=== PATIENT | male | born 1995 | race Two or more races ===

== ENCOUNTER 2017-09-17 23:48 | Emergency (ER) | payer SELFPAY ==
[~2017-09-17] VITALS: Ht 170.2 cm; Wt 76.7 kg
[2017-09-17 23:48] VITALS: BP 121/65
[~2017-09-17 23:48] MED LIST: NKM
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
[2017-09-18 06:19] VITALS: BP 124/82
== END 2017-09-18 06:21 | disposition home or self-care (01) ==
LOC: EDBD 23:48 → EMR 23:59
DX: F10.129 Alcohol abuse with intoxication, unspecified (principal)
CPT/HCPCS: 82962; 99283

== ENCOUNTER 2018-07-07 05:36 | Emergency (ER) | payer SELFPAY ==
[~2018-07-07] VITALS: Ht 182.9 cm; Wt 81.6 kg
--- NOTE | 2018-07-07 05:41 | Emergency Room Report ---
History of Present Illness General Chief Complaint: Altered Level of Consciousness Source: Patient, Medical Record, EMS Present Illness HPI Is a 23-year-old male who presents with alcohol intoxication. He was been drinking heavily tonight. Denies any fever chills. Denies any nausea vomiting. No suicidal thoughts homicidal thought. EMS picked him up outside of his house. He's been here several times for alcohol intoxication. Allergies: Coded Allergies: No Known Allergies (Unverified , 05/06/15) Patient History Past Medical History: none, see triage record, old chart reviewed Past Surgical History: none Pertinent Family History: none Social History: Reports: alcohol use Immunizations: other Reviewed Nursing Documentation: PMH: Agreed; PSxH: Agreed Nursing Documentation-PMH History Of Psychiatric Problem: Yes - BIPOLAR Review of Systems Eye: Denies: eye pain, blurred vision ENT: Denies: ear pain, nose congestion, throat swelling Respiratory: Denies: cough, shortness of breath Cardiovascular: Denies: chest pain, palpitations Gastrointestinal: Denies: abdominal pain, diarrhea, nausea, vomiting Musculoskeletal: Denies: back pain, joint pain Skin: Denies: rash Neurological: Denies: headache, numbness Endocrine: Denies: increased thirst, increased urine Hematologic/Lymphatic: Denies: easy bruising All Other Systems: negative except mentioned in HPI Physical Exam Vital Signs Date Time Temp Pulse Resp B/P (MAP) Pulse Ox O2 Delivery O2 Flow Rate FiO2 07/07/18 05:32 96.5 76 16 134/76 99 Room Air 96.4 vitals normal Sp02 EP Interpretation: reviewed, normal General Appearance: well appearing, no apparent distress, alert Head: normocephalic, atraumatic Eyes: bilateral eye PERRL, bilateral eye EOMI ENT: hearing grossly normal, normal pharynx Neck: full range of motion, supple, no meningismus Respiratory: chest non-tender, lungs clear, normal breath sounds Cardiovascular #1: regular rate, rhythm, no murmur Gastrointestinal: normal bowel sounds, non tender, no mass, no organomegaly, no bruit, non-distended Musculoskeletal: back normal, gait/station normal, normal range of motion Psychiatric: mood/affect normal Skin: warm/dry Medical Decision Making Diagnostic Impression: Primary Impression: Alcohol intoxication Qualified Codes: F10.920 - Alcohol use, unspecified with intoxication, uncomplicated ER Course Patient presents with alcohol intoxication. No trauma to warrant CT scan or x- rays. We'll watch him until clinical sobriety. Last Vital Signs Date Time Temp Pulse Resp B/P (MAP) Pulse Ox O2 Delivery O2 Flow Rate FiO2 07/07/18 05:32 96.5 76 16 134/76 99 Room Air 96.4 Status: improved Disposition: HOME, SELF-CARE Condition: Stable Additional Instructions: abstain from alcohol. Follow-up with rehab. Follow up with your doctor in 7 days. Return if worse. SAMI HOLLEY M.D. Jul 07, 2018 05:41
[2018-07-07 05:45] VITALS: BP 134/76
[2018-07-07 10:21] VITALS: BP 128/85
== END 2018-07-07 10:21 | disposition home or self-care (01) ==
LOC: EDBD 05:36 → EMR 05:59
DX: F10.929 Alcohol use, unspecified with intoxication, unspecified (principal); F31.9 Bipolar disorder, unspecified
CPT/HCPCS: 96360; 99283; 99284

== ENCOUNTER 2019-06-10 23:51 | Emergency (ER) | payer SELFPAY ==
[~2019-06-10] VITALS: Ht 172.7 cm; Wt 75.7 kg
[2019-06-11] VITALS: BP 118/72
--- NOTE | 2019-06-11 | NUR ---
ED Nurse Note: [facility] 67 [facility]. at time of arrival patient is not responding and is sleeping, a receipt for four pam was found on the patients bag. patient reeks of alcohol. will wait for further orders
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
[2019-06-11 02:24] VITALS: BP 120/75
--- NOTE | 2019-06-11 03:00 | NUR ---
ED Nurse Note: Received report from REMY Crespo. Pt is asleep; intermittently changing position.
--- NOTE | 2019-06-11 04:00 | NUR ---
ED Nurse Note: Asleep.
--- NOTE | 2019-06-11 05:00 | NUR ---
ED Nurse Note: Pt. asleep; report given to
--- NOTE | 2019-06-11 05:00 | NUR ---
ED Nurse Note: Recieved report from radha witt to resume care, pt is here pending sober for discharge, pt was awakened, is oriented to name only, pt was re-oriented to place, time ane event, pt deneis pain, no sob or labored breathing, pt falls asleep while talking, pt does awaken but appears to need more time to sober for safe discharge, will allow another hour and re-assess, v/s taken, tp has patent saline lock in right ac., will continue to closely monitor.
[2019-06-11 05:03] VITALS: BP 112/68
[2019-06-11 06:15] VITALS: BP 117/63
--- NOTE | 2019-06-11 06:30 | NUR ---
ER DISCHARGE NOTE: Patient is cleared to be discharged per ERMD, pt is aox4, on room air, with stable vital signs. pt was given dc and prescription instructions, pt was able to verbalize understanding, pt id band and iv site removed without complications. pt is able to ambulate with steady gait. pt took all belongings. pt denies being homeless, adress given, pt is clean and has dry, colean clothing, denies wanting food but did take juice, tolerated well, pt also given clean,dry jacket to wear, pt states he will take bus as he usually does, pt is very pleasant and thankful for care, pt ambulates with complete steady gait, no cp, no sob or labored brething, nad noted during d/c to home.
[2019-06-11 06:44] VITALS: BP 112/68
== END 2019-06-11 06:46 | disposition home or self-care (01) ==
LOC: EDBD 23:51 → EMR 23:59
DX: F10.129 Alcohol abuse with intoxication, unspecified (principal)
CPT/HCPCS: 99283

== ENCOUNTER 2019-12-01 12:22 | Emergency (ER) | payer SELFPAY ==
[~2019-12-01] VITALS: Ht 170.2 cm; Wt 59.0 kg
--- NOTE | 2019-12-01 12:40 | NUR ---
ED Nurse Note: pt brought in by ambulance from home for s/p fall with right knee skin abrasion. pt also c/o pain to right knee. pt is ambulatory. per EMS report pt has Hx of unknown psych Dx. Pt is uncoorporative with answering question.
--- NOTE | 2019-12-01 13:00 | NUR ---
ED Nurse Note: Pt able to urinate; obtained specimen; sent to labs.
--- NOTE | 2019-12-01 13:13 | NUR ---
ED Nurse Note: X-ray on bedside.
--- NOTE | 2019-12-01 13:16 | NUR ---
ED Nurse Note: Xray done.
--- NOTE | 2019-12-01 13:40 | NUR ---
ED Nurse Note: PA on bedside.
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
--- NOTE | 2019-12-01 14:37 | NUR ---
ED Nurse Note:blood sent to labs
[2019-12-01 15:14] LABS: BASOPHILS % (AUTO) 1.4 % (0.0-2.0); EOSINOPHILS % (AUTO) 0.3 % (0.0-3.0); HEMATOCRIT 47.3 % (42.0-52.0); HEMOGLOBIN 15.7 G/DL (14.2-18.0); LYMPHOCYTES % (AUTO) 15.8 % (20.0-45.0); MEAN CORPUSCULAR VOLUME 90 FL (80-99); MONOCYTES % (AUTO) 5.6 % (1.0-10.0); NEUTROPHILS % (AUTO) 76.9 % (45.0-75.0); PLATELET COUNT 253 K/UL (150-450); RED BLOOD COUNT 5.25 M/UL (4.70-6.10); RED CELL DISTRIBUTION WIDTH 11.7 % (11.6-14.8); WHITE BLOOD COUNT 7.1 K/UL (4.8-10.8)
[2019-12-01 15:19] LABS: ANION GAP 10 mmol/L (5-15); BLOOD UREA NITROGEN 8 mg/dL (7-18); CALCIUM 8.6 MG/DL (8.5-10.1); CARBON DIOXIDE 27 MMOL/L (21-32); CHLORIDE 107 MMOL/L (98-107); CREATININE 0.8 MG/DL (0.55-1.30); SODIUM 144 MMOL/L (136-145)
[2019-12-01 15:24] LABS: ALANINE AMINOTRANSFERASE 28 U/L (12-78); ALBUMIN 4.4 G/DL (3.4-5.0); ALBUMIN/GLOBULIN RATIO 1.2 (1.0-2.7); ALKALINE PHOSPHATASE 81 U/L (46-116); ASPARTATE AMINO TRANSFERASE 24 U/L (15-37); BILIRUBIN,TOTAL 0.3 MG/DL (0.2-1.0)
[2019-12-01] MEDS ORDERED: LORazepam 0.5mg tab ORAL ONE (16:15)
[2019-12-01 16:30] VITALS: BP 119/65
--- NOTE | 2019-12-01 16:30 | NUR ---
ED Nurse Note:pt. left before signing d/c instructions ambulatory with steady gait and A/Ox4 ,pt. took all of his belongings with him
[2019-12-01] MEDS ORDERED: BACITRACIN-P28.35 GM TP (16:35)
--- NOTE | 2019-12-02 07:59 | Diagnostic Imaging Report ---
Indications: Pain Technique: Three views of the right knee Comparison: None Findings: No acute fractures. No dislocations. Joint spaces are preserved. No radiopaque foreign body. Normal mineralization. Impression: No acute process
== END 2019-12-01 16:30 | disposition home or self-care (01) ==
LOC: EDBD 12:22 → EMR 16:30
DX: S80.211A Abrasion, right knee, initial encounter (principal); W01.0XXA Fall on same level from slipping, tripping and stumbling without subsequent striking against object, initial encounter
CPT/HCPCS: 36415; 73562; 80053; 80307; 85025; 99283; G0480

== ENCOUNTER 2020-01-24 01:35 | Emergency (ER) | payer SELFPAY ==
[~2020-01-24] VITALS: Ht 170.2 cm; Wt 72.6 kg
[~2020-01-24 01:35] MED LIST changes: +BACITRACIN-P28.35 GM TP
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
--- NOTE | 2020-01-24 01:44 | NUR ---
ED Nurse Note: pt denies SI/HI at this time
[2020-01-24 01:45] VITALS: BP 152/78
[2020-01-24] MEDS ORDERED: Acetaminophen 500mg (ES) tab ORAL ONE (02:15)
[2020-01-24] MEDS ORDERED: LORazepam Inj 2mg/ml 1ml IV ONE (02:15)
[2020-01-24 02:27] LABS: HEMATOCRIT 47.9 % (42.0-52.0); HEMOGLOBIN 16.3 G/DL (14.2-18.0); MEAN CORPUSCULAR VOLUME 89 FL (80-99); PLATELET COUNT 258 K/UL (150-450); RED CELL DISTRIBUTION WIDTH 11.6 % (11.6-14.8); WHITE BLOOD COUNT 14.8 K/UL (4.8-10.8)
[2020-01-24 02:37] LABS: ANION GAP 10 mmol/L (5-15); BLOOD UREA NITROGEN 8 mg/dL (7-18); CARBON DIOXIDE 30 MMOL/L (21-32); CHLORIDE 104 MMOL/L (98-107); CREATININE 0.9 MG/DL (0.55-1.30); POTASSIUM 4.3 MMOL/L (3.5-5.1); SODIUM 144 MMOL/L (136-145)
[2020-01-24 02:41] LABS: ALANINE AMINOTRANSFERASE 28 U/L (12-78); ALBUMIN 4.8 G/DL (3.4-5.0); ALBUMIN/GLOBULIN RATIO 1.2 (1.0-2.7); ALKALINE PHOSPHATASE 82 U/L (46-116); ASPARTATE AMINO TRANSFERASE 26 U/L (15-37); BILIRUBIN,TOTAL 0.4 MG/DL (0.2-1.0)
--- NOTE | 2020-01-24 03:30 | NUR ---
ED Nurse Note: pt appears to be asleep, in bed with his eyes closed, no acute distress is noted at this time. VSS, fluids are infusing as ordered. all safety precautions are in place. will continue to monitor
--- NOTE | 2020-01-24 03:37 | Emergency Room Report ---
History of Present Illness General Chief Complaint: Behavioral Complaint Source: Patient Present Illness HPI 25-year-old male presents the ED for evaluation. Brought in by EMS from home. States that he had an anxiety attack tonight. Called 911. States that symptoms started after he had an argument with his mother. Admits to drinking alcohol. States he has a headache. Also has abdominal pain. Dull, 8 out of 10 , nonradiating. Notes nausea and vomiting. States he took some sleeping pills tonight to help him relax. Denies SI or HI. Denies hearing voices. No other aggravating relieving factors. Denies any other associated symptoms Allergies: Coded Allergies: No Known Allergies (Unverified , 01/24/20) Patient History Past Medical History: psych hx Past Surgical History: none Pertinent Family History: none Social History: Reports: alcohol use; Denies: smoking, drug use Immunizations: UTD Reviewed Nursing Documentation: PMH: Agreed; PSxH: Agreed Nursing Documentation-PMH History Of Psychiatric Problem: Yes - anxiety Review of Systems All Other Systems: negative except mentioned in HPI Physical Exam Vital Signs Date Time Temp Pulse Resp B/P (MAP) Pulse Ox O2 Delivery O2 Flow Rate FiO2 01/24/20 01:37 98.1 98 20 152/78 (102) 100 Room Air Sp02 EP Interpretation: reviewed, normal General Appearance: no apparent distress, alert, GCS 15, non-toxic Head: normocephalic, atraumatic Eyes: bilateral eye normal inspection, bilateral eye PERRL ENT: hearing grossly normal, normal pharynx, no angioedema, normal voice Neck: full range of motion, supple/symm/no masses Respiratory: chest non-tender, lungs clear, normal breath sounds, speaking full sentences Cardiovascular #1: regular rate, rhythm, no edema Cardiovascular #2: 2+ carotid (R), 2+ carotid (L), 2+ radial (R), 2+ radial (L) , 2+ dorsalis pedis (R), 2+ dorsalis pedis (L) Gastrointestinal: normal bowel sounds, non tender, soft, non-distended, no guarding, no rebound Rectal: deferred Genitourinary: normal inspection, no CVA tenderness Musculoskeletal: back normal, normal range of motion, gait/station normal, non- tender Neurologic: alert, motor strength/tone normal, oriented x3, sensory intact, responsive, speech normal Psychiatric: judgement/insight normal, memory normal, no suicidal/homicidal ideation, no delusions, anxious Reflexes: 3+ bicep (R), 3+ bicep (L), 3+ tricep (R), 3+ tricep (L), 3+ knee (R) , 3+ knee (L) Skin: no rash Lymphatic: no adenopathy Medical Decision Making Diagnostic Impression: Primary Impression: Alcohol intoxication Qualified Codes: F10.929 - Alcohol use, unspecified with intoxication, unspecified Additional Impression: Anxiety ER Course Hospital Course 25 yo M presents with headache, abd pain. +ETOH Differential diagnoses include: anxiety, EtOH, drug abuse Clinical course patient placed on stretcher. On cafeteria monitor. After initial history and physical ordered labs, IV fluids, ativan, tylenol Labs reviewed-electrolytes okay, noted leukocytosis, hemoglobin/hematocrit stable, tox panel + THC, +ETOH And allowed to sleep. Observed on cafeteria monitor with stable vitals. Now alert oriented x3. Feels better. No SI or HI. Safe for discharge for close outpatient follow-up. I will provide referrals i. I feel this is a highly complex case requiring extensive working including EKG/Rhythm strip, Xray/CT/US, Blood/urine lab work, repeat exams while in ED, and administration of strong opiates/narcotics for pain control, admission to hospital or close patient follow up. Diagnosis - alcohol intoxication, anxiety Stable and discharged to home with Rx Pepcid. Followup with PMD. Return to ED if symptoms recur or worsen Labs Test 01/24/20 02:15 White Blood Count 14.8 K/UL (4.8-10.8) Red Blood Count 5.40 M/UL (4.70-6.10) Hemoglobin 16.3 G/DL (14.2-18.0) Hematocrit 47.9 % (42.0-52.0) Mean Corpuscular Volume 89 FL (80-99) Mean Corpuscular Hemoglobin 30.2 PG (27.0-31.0) Mean Corpuscular Hemoglobin Concent 34.0 G/DL (32.0-36.0) Red Cell Distribution Width 11.6 % (11.6-14.8) Platelet Count 258 K/UL (150-450) Mean Platelet Volume 6.9 FL (6.5-10.1) Neutrophils (%) (Auto) % (45.0-75.0) Lymphocytes (%) (Auto) % (20.0-45.0) Monocytes (%) (Auto) % (1.0-10.0) Eosinophils (%) (Auto) % (0.0-3.0) Basophils (%) (Auto) % (0.0-2.0) Differential Total Cells Counted 100 Neutrophils % (Manual) 82 % (45-75) Lymphocytes % (Manual) 11 % (20-45) Monocytes % (Manual) 7 % (1-10) Eosinophils % (Manual) 0 % (0-3) Basophils % (Manual) 0 % (0-2) Band Neutrophils 0 % (0-8) Platelet Estimate Adequate Platelet Morphology Normal Sodium Level 144 MMOL/L (136-145) Potassium Level 4.3 MMOL/L (3.5-5.1) Chloride Level 104 MMOL/L (98-107) Carbon Dioxide Level 30 MMOL/L (21-32) Anion Gap 10 mmol/L (5-15) Blood Urea Nitrogen 8 mg/dL (7-18) Creatinine 0.9 MG/DL (0.55-1.30) Estimat Glomerular Filtration Rate > 60 mL/min (>60) Glucose Level 92 MG/DL (74-106) Calcium Level 9.0 MG/DL (8.5-10.1) Total Bilirubin 0.4 MG/DL (0.2-1.0) Aspartate Amino Transf (AST/SGOT) 26 U/L (15-37) Alanine Aminotransferase (ALT/SGPT) 28 U/L (12-78) Alkaline Phosphatase 82 U/L (46-116) Total Protein 8.7 G/DL (6.4-8.2) Albumin 4.8 G/DL (3.4-5.0) Globulin 3.9 g/dL Albumin/Globulin Ratio 1.2 (1.0-2.7) Salicylates Level 1.8 ug/mL (2.8-20) Urine Opiates Screen Negative (NEGATIVE) Acetaminophen Level < 2 MCG/ML (10-30) Urine Barbiturates Screen Negative (NEGATIVE) Phencyclidine (PCP) Screen Negative (NEGATIVE) Urine Amphetamines Screen Negative (NEGATIVE) Urine Benzodiazepines Screen Negative (NEGATIVE) Urine Cocaine Screen Negative (NEGATIVE) Urine Marijuana (THC) Screen Positive (NEGATIVE) Serum Alcohol 175 mg/dL Last Vital Signs Date Time Temp Pulse Resp B/P (MAP) Pulse Ox O2 Delivery O2 Flow Rate FiO2 01/24/20 01:45 98 20 Room Air 01/24/20 01:45 152/78 100 01/24/20 01:37 98.1 Status: improved Disposition: HOME, SELF-CARE Condition: Stable Scripts Famotidine* (Pepcid 20mg tablet*) 20 Mg Tablet 20 MG ORAL DAILY, #30 TAB 0 Refills Prov: Iftikhar Valdez MD 01/24/20 Referrals: NOT CHOSEN IPA/,REFERRING (PCP) Iftikhar Valdez MD Jan 24, 2020 03:37
--- NOTE | 2020-01-24 05:18 | NUR ---
ED Nurse Note: pt verbalized that he is feeling better, states his PRUETT pain has subsided and that he no longer feels as anxious as he did when he arrived
[2020-01-24] MEDS ORDERED: FAMOTIDINE20 MG ORAL (05:29)
[2020-01-24 05:45] VITALS: BP 152/78
--- NOTE | 2020-01-24 05:45 | NUR ---
ED Nurse Note: Pt cleared by health care Provider for discharge. DC instructions and prescription were given and explained to pt. he verbalized understanding of all teachings. All medical devices such as ID band and IV site were removed. Pt is AAO x4, ambulatory and left with all personal belongings.
== END 2020-01-24 05:45 | disposition home or self-care (01) ==
LOC: EDBD → EDUNIT# 01:35 → EDBD 01:35 → EMR 02:02
DX: F10.129 Alcohol abuse with intoxication, unspecified (principal); F41.9 Anxiety disorder, unspecified; Y90.6 Blood alcohol level of 120-199 mg/100 ml
CPT/HCPCS: 36415; 80053; 80307; 85007; 85025; 96361; 96374; 99284; G0480; J7030

== ENCOUNTER 2020-02-16 02:03 | Emergency (ER) | payer SELFPAY ==
[~2020-02-16] VITALS: Ht 175.3 cm; Wt 59.0 kg
[~2020-02-16 02:03] MED LIST changes: +FAMOTIDINE20 MG ORAL
[2020-02-16] MEDS ORDERED: LORazepam 1mg tab ORAL ONE (02:15)
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
--- NOTE | 2020-02-16 02:20 | NUR ---
ED Nurse Note: Pt brought in by ambulance from streets, pt reports 7/10 neck pain [id number], pt is visibly anxious and restless, avioding questions, sweaty and states " i'm having anxiety" pt unable to give much information. VSS, ERMD at bedside
[2020-02-16 02:22] VITALS: BP 143/84
--- NOTE | 2020-02-16 03:13 | Diagnostic Imaging Report ---
Indication: Cervical trauma/pain. Technique: Continuous helical imaging of the cervical spine was obtained transaxially from the skull base to the upper thoracic spine. 2-D coronal and sagittal reformatted images were obtained. Automatic Exposure Control was utilized. Total Dose length Product (DLP): 150.[address] Dose Index Volume (CTDIvol): 5.3 mGy Comparison: None Findings: There is reversal cervical lordosis which may be due to muscle spasm. There is no evidence of an acute fracture or other malalignment issues. Atlantoaxial alignment appears normal. Height and configuration of the vertebral bodies and intervertebral discs are within normal limits. Uncovertebral joints and facets are unremarkable. There is no soft tissue swelling. Impression: Reversal cervical lordosis which may be due to muscle spasm. No acute fracture. [facility] has communicated the preliminary results to the Emergency Department. Their findings are largely concordant with this report. The CT scanner at [facility] is accredited by the [employer] and the scans are performed using dose optimization techniques as appropriate to a performed exam including Automatic Exposure control.
[2020-02-16] MEDS ORDERED: IBUPROFEN600 MG ORAL (03:19)
[2020-02-16] MEDS ORDERED: ROBAXIN-500MG ORAL (03:20)
[2020-02-16 03:30] VITALS: BP 143/84
--- NOTE | 2020-02-16 03:30 | NUR ---
ER DISCHARGE NOTE: Patient is cleared to be discharged per ERMD, pt is aox4, on room air, with stable vital signs. pt was given dc and prescription instructions, pt was able to verbalize understanding, pt id band removed. pt is able to ambulate with steady gait. pt took all belongings.
== END 2020-02-16 03:30 | disposition home or self-care (01) ==
LOC: EDBD 02:03 → EMR 02:18
DX: F41.9 Anxiety disorder, unspecified (principal); S16.1XXA Strain of muscle, fascia and tendon at neck level, initial encounter; H11.31 Conjunctival hemorrhage, right eye; Y09 Assault by unspecified means; Y92.9 Unspecified place or not applicable; F32.9 Major depressive disorder, single episode, unspecified; F41.0 Panic disorder [episodic paroxysmal anxiety]
CPT/HCPCS: 72125; 99284